=== PATIENT | male | born 1970 | race Caucasian/White ===

== ENCOUNTER 2020-03-23 01:20 | Inpatient (IN) | payer OTHER, SELFPAY ==
[~2020-03-23] VITALS: Ht 167.6 cm; Wt 108.9 kg
[2020-03-23 01:25] VITALS: Ht 167.6 cm; Wt 108.9 kg
[2020-03-23 02:37] LABS: CALCIUM 8.1 mg/dL (8.5-10.1); CARBON DIOXIDE 24.1 mmol/L (21-32); CHLORIDE SERUM 102 mmol/L (98-107); CREATININE SERUM 1.2 mg/dL (0.7-1.3); GFR1 > 60 mL/min; GLUCOSE SERUM 113 mg/dL (74-106); POTASSIUM SERUM 3.2 mmol/L (3.5-5.1); SODIUM SERUM 136 mmol/L (136-145)
[2020-03-23 02:50] LABS: ALBUMIN 3.4 g/dL (3.4-5.0); ALKALINE PHOSPHATASE 69 U/L (46-116); ALT/SGPT 39 U/L (16-63); AST/SGOT 19 U/L (15-37); BILIRUBIN TOTAL 0.63 mg/dL (0.20-1.00); LACTIC DEHYDROGENASE (LDH) 180 U/L (100-190); TOTAL PROTEIN, SERUM 6.6 g/dL (6.4-8.2)
[2020-03-23 03:00] LABS: C REACTIVE PROTEIN 34.7 mg/dL (<=0.9)
[2020-03-23 03:00] LABS: UA SPECIFIC GRAVITY >=1.030 (1.005-1.035); microscopic required? YES; urine erythrocyte 3+ (NEGATIVE)
[2020-03-23 03:27] LABS: BASOPHIL % 0.1 % (0-2); PLATELET COUNT 179 x10^3mcL (130-400)
[2020-03-23 03:37] LABS: RED CELL DISTRIBUTION WIDTH 14.7 % (11.5-14.5)
[2020-03-23 07:21] LABS: BASOPHIL % 0.1 % (0-2); PLATELET COUNT 182 x10^3mcL (130-400)
[2020-03-23 07:35] LABS: RED CELL DISTRIBUTION WIDTH 14.9 % (11.5-14.5)
[2020-03-23 09:10] VITALS: BP 112/59
[2020-03-23 10:09] VITALS: BP 102/74
[2020-03-23 10:40] VITALS: BP 139/86
[2020-03-23 12:34] VITALS: BP 119/52; BP 134/73
[2020-03-23 17:32] VITALS: BP 138/74
[2020-03-23 21:46] VITALS: BP 138/80
[2020-03-24 05:18] VITALS: BP 131/78
[2020-03-24 06:53] LABS: PLATELET COUNT 191 x10^3mcL (130-400)
[2020-03-24 07:01] LABS: BASOPHIL % 0 % (0-2); RED CELL DISTRIBUTION WIDTH 15.1 % (11.5-14.5)
[2020-03-24 07:24] LABS: CALCIUM 8.7 mg/dL (8.5-10.1); CARBON DIOXIDE 23.9 mmol/L (21-32); CHLORIDE SERUM 101 mmol/L (98-107); CREATININE SERUM 0.9 mg/dL (0.7-1.3); GFR1 > 60 mL/min; GLUCOSE SERUM 101 mg/dL (74-106); MAGNESIUM 2.3 mg/dL (1.8-2.4); PHOSPHOROUS 2.4 mg/dL (2.5-4.9); POTASSIUM SERUM 3.8 mmol/L (3.5-5.1); SODIUM SERUM 134 mmol/L (136-145)
[2020-03-24 08:10] VITALS: BP 132/72
[2020-03-24 12:04] VITALS: BP 148/83
[2020-03-24 16:15] VITALS: BP 127/68
[2020-03-24 20:07] VITALS: BP 134/70
[2020-03-25 06:29] LABS: BASOPHIL % 0.2 % (0-2); PLATELET COUNT 216 x10^3mcL (130-400)
[2020-03-25 06:33] VITALS: BP 140/75
[2020-03-25 07:07] LABS: CALCIUM 8.6 mg/dL (8.5-10.1); CHLORIDE SERUM 103 mmol/L (98-107); CREATININE SERUM 0.9 mg/dL (0.7-1.3); GFR1 > 60 mL/min; GLUCOSE SERUM 99 mg/dL (74-106); POTASSIUM SERUM 3.9 mmol/L (3.5-5.1); SODIUM SERUM 139 mmol/L (136-145)
[2020-03-25 07:21] LABS: RED CELL DISTRIBUTION WIDTH 14.9 % (11.5-14.5)
[2020-03-25 08:05] LABS: CARBON DIOXIDE 26.6 mmol/L (21-32); MAGNESIUM 2.6 mg/dL (1.8-2.4); PHOSPHOROUS 2.9 mg/dL (2.5-4.9)
[2020-03-25 08:27] VITALS: BP 151/100
[2020-03-25 13:06] VITALS: BP 151/100
[2020-03-25 16:29] VITALS: BP 145/91
[2020-03-25 20:30] VITALS: BP 149/81
[2020-03-26 05:39] VITALS: BP 131/81
[2020-03-26 06:52] LABS: C REACTIVE PROTEIN 6.4 mg/dL (<=0.9); CALCIUM 9.1 mg/dL (8.5-10.1); CARBON DIOXIDE 27.8 mmol/L (21-32); CHLORIDE SERUM 103 mmol/L (98-107); CREATININE SERUM 0.8 mg/dL (0.7-1.3); GFR1 > 60 mL/min; GLUCOSE SERUM 102 mg/dL (74-106); MAGNESIUM 2.6 mg/dL (1.8-2.4); PHOSPHOROUS 3.5 mg/dL (2.5-4.9); POTASSIUM SERUM 3.9 mmol/L (3.5-5.1); SODIUM SERUM 139 mmol/L (136-145)
[2020-03-26 07:02] LABS: BASOPHIL % 0.4 % (0-2); PLATELET COUNT 251 x10^3mcL (130-400)
[2020-03-26 07:08] LABS: RED CELL DISTRIBUTION WIDTH 15.3 % (11.5-14.5)
[2020-03-26 08:51] VITALS: BP 156/85
[2020-03-26 12:21] VITALS: BP 147/92
[2020-03-26 18:54] VITALS: BP 138/90
[2020-03-26 19:56] VITALS: BP 142/84
[2020-03-27 05:42] VITALS: BP 138/88
[2020-03-27 06:52] LABS: CALCIUM 9.1 mg/dL (8.5-10.1); CARBON DIOXIDE 30.5 mmol/L (21-32); CHLORIDE SERUM 103 mmol/L (98-107); GFR1 > 60 mL/min; GLUCOSE SERUM 97 mg/dL (74-106); POTASSIUM SERUM 4.1 mmol/L (3.5-5.1); SODIUM SERUM 141 mmol/L (136-145)
[2020-03-27 07:08] LABS: BASOPHIL % 0.4 % (0-2); PLATELET COUNT 272 x10^3mcL (130-400)
[2020-03-27 07:20] LABS: RED CELL DISTRIBUTION WIDTH 14.6 % (11.5-14.5)
[2020-03-27 08:47] VITALS: BP 125/74
[2020-03-27 12:12] VITALS: BP 127/80
[2020-03-27 16:55] VITALS: BP 121/79
[2020-03-27 20:58] VITALS: BP 149/89
[2020-03-28 05:08] VITALS: BP 127/90
[2020-03-28 07:35] VITALS: BP 136/80
[2020-03-28 08:22] LABS: CALCIUM 9.4 mg/dL (8.5-10.1); CARBON DIOXIDE 29.3 mmol/L (21-32); CHLORIDE SERUM 101 mmol/L (98-107); CREATININE SERUM 0.9 mg/dL (0.7-1.3); GFR1 > 60 mL/min; GLUCOSE SERUM 99 mg/dL (74-106); SODIUM SERUM 138 mmol/L (136-145)
[2020-03-28 08:27] LABS: BASOPHIL % 0.4 % (0-2); PLATELET COUNT 316 x10^3mcL (130-400); RED CELL DISTRIBUTION WIDTH 14.6 % (11.5-14.5)
[2020-03-28 12:09] VITALS: BP 156/89
[2020-03-28 17:19] VITALS: BP 166/91
[2020-03-28 21:15] VITALS: BP 151/87
[2020-03-29 05:14] VITALS: BP 146/86
[2020-03-29 08:45] VITALS: BP 136/93
[2020-03-29] MEDS ORDERED: LEVAQUIN500 M1 PO (09:54)
[2020-03-29 10:36] VITALS: BP 136/93
== END 2020-03-29 11:21 | disposition home or self-care (01) | DRG 871 ==
LOC: ED 01:20 → DU 04:51
PROVIDERS: Specialist; ADMIT Internal Medicine; ATTEND Internal Medicine
DX: A41.51 Sepsis due to Escherichia coli [E. coli] (principal); J18.9 Pneumonia, unspecified organism; J96.01 Acute respiratory failure with hypoxia; N39.0 Urinary tract infection, site not specified; Z20.828 Contact with and (suspected) exposure to other viral communicable diseases; I10 Essential (primary) hypertension; N20.0 Calculus of kidney; E87.6 Hypokalemia; D64.9 Anemia, unspecified; K52.9 Noninfective gastroenteritis and colitis, unspecified
CPT/HCPCS: 36600; 83880; 85378; 87804; G0378; J0456; J0696; J1644; J1956; J2185; J7030; U0003-CS